=== PATIENT | male | born 1945 | race Caucasian/White ===

== ENCOUNTER 2016-10-03 11:36 | Inpatient (IN) | payer BLACK LUNG, MEDICARE, OTHER ==
[2016-10-04 03:55] LABS: HEMOGLOBIN 9.8 gm/dl (14.0-17.5); RED BLOOD COUNT 3.3 M/UL (4.20-5.50); WHITE BLOOD COUNT 14.4 K/UL (4.5-11.0)
[2016-10-04 04:16] LABS: BUN/CREATININE RATIO 46 (0-10)
[2016-10-05 05:00] LABS: HEMOGLOBIN 8.8 gm/dl (14.0-17.5); WHITE BLOOD COUNT 12.4 K/UL (4.5-11.0)
[2016-10-05 05:03] LABS: RED BLOOD COUNT 2.94 M/UL (4.20-5.50)
[2016-10-05 05:12] LABS: BUN/CREATININE RATIO 43 (0-10)
[2016-10-05 15:10] LABS: HEMOGLOBIN 9.2 gm/dl (14.0-17.5)
[2016-10-06 03:39] LABS: HEMOGLOBIN 9.3 gm/dl (14.0-17.5); RED BLOOD COUNT 3.15 M/UL (4.20-5.50); WHITE BLOOD COUNT 14.2 K/UL (4.5-11.0)
[2016-10-06 04:02] LABS: BUN/CREATININE RATIO 41 (0-10)
[2016-10-07 04:36] LABS: HEMOGLOBIN 8.5 gm/dl (14.0-17.5); RED BLOOD COUNT 2.84 M/UL (4.20-5.50); WHITE BLOOD COUNT 15.9 K/UL (4.5-11.0)
[2016-10-07 05:13] LABS: BUN/CREATININE RATIO 39 (0-10)
[2016-10-08 04:03] LABS: HEMOGLOBIN 9.1 gm/dl (14.0-17.5); RED BLOOD COUNT 3.07 M/UL (4.20-5.50); WHITE BLOOD COUNT 17.1 K/UL (4.5-11.0)
[2016-10-08 04:26] LABS: BUN/CREATININE RATIO 35 (0-10)
[2016-10-09 04:05] LABS: HEMOGLOBIN 8.7 gm/dl (14.0-17.5); RED BLOOD COUNT 2.91 M/UL (4.20-5.50); WHITE BLOOD COUNT 14.5 K/UL (4.5-11.0)
[2016-10-09 04:29] LABS: BUN/CREATININE RATIO 33 (0-10)
[2016-10-10 05:09] LABS: RED BLOOD COUNT 3.04 M/UL (4.20-5.50); WHITE BLOOD COUNT 15.7 K/UL (4.5-11.0)
[2016-10-10 05:30] LABS: BUN/CREATININE RATIO 34 (0-10)
[2016-10-11 04:33] LABS: HEMOGLOBIN 8.9 gm/dl (14.0-17.5); RED BLOOD COUNT 3.02 M/UL (4.20-5.50); WHITE BLOOD COUNT 13.5 K/UL (4.5-11.0)
[2016-10-11 05:13] LABS: BUN/CREATININE RATIO 38 (0-10)
== END 2016-10-11 20:00 | DRG 4 ==
LOC: CCU 11:36
PROVIDERS: Internal Medicine Critical Care Medicine; Internal Medicine Infectious Disease; ADMIT Family Medicine
PROC: 5A1955Z Respiratory Ventilation, Greater than 96 Consecutive Hours (ICD-10-PCS; principal; 2016-10-03)
PROC: 0B113F4 Bypass Trachea to Cutaneous with Tracheostomy Device, Percutaneous Approach (ICD-10-PCS; 2016-10-07)
PROC: 0DH63UZ Insertion of Feeding Device into Stomach, Percutaneous Approach (ICD-10-PCS; 2016-10-07)
PROC: 0DJ08ZZ Inspection of Upper Intestinal Tract, Via Natural or Artificial Opening Endoscopic (ICD-10-PCS; 2016-10-07)
PROC: 0BJ08ZZ Inspection of Tracheobronchial Tree, Via Natural or Artificial Opening Endoscopic (ICD-10-PCS; 2016-10-08)
DX: J15.212 Pneumonia due to Methicillin resistant Staphylococcus aureus (principal); J96.01 Acute respiratory failure with hypoxia; J96.02 Acute respiratory failure with hypercapnia; G93.40 Encephalopathy, unspecified; J44.1 Chronic obstructive pulmonary disease with (acute) exacerbation; B37.81 Candidal esophagitis; N17.9 Acute kidney failure, unspecified; Z99.11 Dependence on respirator [ventilator] status; I10 Essential (primary) hypertension; I48.0 Paroxysmal atrial fibrillation; E87.6 Hypokalemia; E11.65 Type 2 diabetes mellitus with hyperglycemia; M62.50 Muscle wasting and atrophy, not elsewhere classified, unspecified site; Z99.81 Dependence on supplemental oxygen; Z93.1 Gastrostomy status; E78.5 Hyperlipidemia, unspecified; F17.210 Nicotine dependence, cigarettes, uncomplicated; J60 Coalworker's pneumoconiosis; Z98.890 Other specified postprocedural states; Z79.82 Long term (current) use of aspirin; Z79.899 Other long term (current) drug therapy; Z79.4 Long term (current) use of insulin; Z82.49 Family history of ischemic heart disease and other diseases of the circulatory system; Z83.3 Family history of diabetes mellitus; R63.3 Feeding difficulties
CPT/HCPCS: ECHO; 36415; 36600; 70450; 71010; 80048; 80053; 80202; 80307; 81001; 82550; 82553; 82607; 82728; 82746; 82803; 82962; 83036; 83540; 83550; 83605; 83735; 84100; 84436; 84443; 84484; 85014; 85018; 85025; 85027; 85610; 87040; 87070; 87077; 87086; 87186; 87205; 93005; 93306; 94002; 94003; 94640; 94664; C9113; J1120; J1650; J1940; J2020; J2248; J2250; J2920; J3370; J3480; J7040; J7050; J7070; J7120; J7509